=== PATIENT | female | born 1955 | race Caucasian/White ===

== ENCOUNTER → 2023-10-17 19:55 | Outpatient (CLI) | payer MEDICARE, OTHER, SELFPAY ==
--- NOTE | 2023-10-17 13:39 | DI.RAD_ITS ---
Exam(s) XR SHOULDER LT COMPLETE 2+V EXAM: XR SHOULDER LT COMPLETE 2+V CLINICAL HISTORY: evaluate pathology M25.512 PAIN LEFT SHOULDER. TECHNIQUE: 2D digital imaging was performed. COMPARISON: No exams were available for comparison FINDINGS: Five views. No evidence of fracture or dislocation or abnormal soft tissue calcifications. Subacromial space exh ibits normal height. There are mild degenerative changes in the glenohumeral joint. AC joint appear s unremarkable as does the left clavicle. No evidence of os acromiale. Bone density normal. No oss eous lesions. IMPRESSION: No acute osseous findings in the shoulder. Some degenerative changes noted in the glenohumeral joint DATA REPOSITORY: RADIATION DOSE DELIVERED:
== END ==
PROVIDERS: Visit Provider Nurse Practitioner Family
DX: M25.512 Pain in left shoulder (principal)
CPT/HCPCS: 73030